=== PATIENT | female | born 1985 | race Caucasian/White ===

== ENCOUNTER 2017-08-11 18:47 | Emergency (ER) | payer MEDICAID ==
[~2017-08-11] VITALS: Ht 160 cm; Wt 52.3 kg
[~2017-08-11 18:47] MED LIST: CIPR250T45 PO; LORA-303 PO; ONDAN8ODT BC; SERT100T PO; VIS25 PO; [UNRECOGNIZED DRUG - CODE] PO
[2017-08-11 18:58] VITALS: BP 118/83; PULSE 125; RESP 16; O2SAT 100
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
[2017-08-11] MEDS ORDERED: SULF1TAB7 PO (19:59)
[2017-08-11] MEDS ORDERED: HYDR-4003 PO (19:59)
[2017-08-11 20:05] VITALS: BP 122/90; PULSE 97; RESP 18; O2SAT 96
== END 2017-08-11 20:05 | disposition home or self-care (01) ==
LOC: SED 18:47
DX: S01.511A Laceration without foreign body of lip, initial encounter (principal); L08.9 Local infection of the skin and subcutaneous tissue, unspecified; Y04.0XXA Assault by unarmed brawl or fight, initial encounter; Y93.89 Activity, other specified; Y92.89 Other specified places as the place of occurrence of the external cause; Y99.8 Other external cause status